=== PATIENT | female | born 1970 | race Caucasian/White ===

== ENCOUNTER 2019-01-21 09:17 | Outpatient (REF) | payer OTHER, SELFPAY ==
[2019-01-21 22:16] LABS: Abs Immature Grans 0.01 k/cumm (0.0-0.09); Absolute Basophil Count 0.02 k/cumm (0.0-0.2); Absolute Eosinophil Count 0.08 k/cumm (0.0-0.7); Absolute Monocyte Count 0.54 k/cumm (0.11-0.7); Absolute Neutrophil Count 3.05 k/cumm (1.2-6.7); Basophils % 0.4; Eosinophils % 1.5; HCT 41.5 % (36.0-46.0); HGB 13.8 g/dL (12.0-15.5); Immature Grans % 0.2; Lymphocytes % 28.8; Mean Corp. HGB Concentration 33.3 g/dL (32.0-36.0); Mean Corpuscular Hemoglobin 32.5 pg (27.0-33.0); Mean Corpuscular Volume 97.9 fL (80-95); Mean Platelet Volume 9.9 fL (8.0-11.0); Monocytes % 10.4; Neutrophils % 58.7; Platelet Count 352 x1000/uL (130-400); RBC 4.24 m/cumm (4.00-5.20); RBC Distribution Width 13.7 % (11.7-14.6)
[2019-01-21 22:31] LABS: ALT 21 U/L (12-78); AST 15 U/L (15-37); Alkaline Phosphatase 53 U/L (46-116); Anion Gap 8.5 mmol/L (3-11); BUN 15 mg/dL (7-18); Bilirubin, Total 0.4 mg/dL (0.2-1.0); CO2 27.5 mmol/L (21.0-32.0); CREATININE 0.83 mg/dL (0.55-1.02); Calcium 9.2 mg/dL (8.5-10.1); Chloride 101 mmol/L (98-107); Glucose 88 mg/dL (70-100); Potassium 4.2 mmol/L (3.5-5.1); Sodium 137 mmol/L (136-145); TSH 0.68 uIU/mL (0.358-3.74); Total Protein 7.6 g/dL (6.4-8.2)
== END 2019-01-21 09:37 ==
LOC: NCHCN 09:17
PROVIDERS: PCP Nurse Practitioner Family; Visit Provider Registered Nurse
DX: E03.9 Hypothyroidism, unspecified (principal); K50.90 Crohn's disease, unspecified, without complications
CPT/HCPCS: 80053; 84443; 85025

== ENCOUNTER 2019-07-24 12:14 | Outpatient (REF) | payer OTHER, SELFPAY ==
[2019-07-24 21:13] LABS: Absolute Basophil Count 0.02 k/cumm (0.0-0.2); Absolute Eosinophil Count 0.04 k/cumm (0.0-0.7); Absolute Lymphocyte Count 1.07 k/cumm (1.2-3.4); Absolute Monocyte Count 0.47 k/cumm (0.11-0.7); Basophils % 0.4; Eosinophils % 0.8; HCT 38.4 % (36.0-46.0); HGB 12.7 g/dL (12.0-15.5); Lymphocytes % 20.2; Mean Corp. HGB Concentration 33.1 g/dL (32.0-36.0); Mean Corpuscular Hemoglobin 30.9 pg (27.0-33.0); Mean Corpuscular Volume 93.4 fL (80-95); Mean Platelet Volume 9.4 fL (8.0-11.0); Monocytes % 8.9; Neutrophils % 69.7; Platelet Count 440 x1000/uL (130-400); RBC 4.11 m/cumm (4.00-5.20); RBC Distribution Width 14.6 % (11.7-14.6)
[2019-07-24 21:28] LABS: ALT 17 U/L (14-59); AST 15 U/L (15-37); Albumin 3.9 g/dL (3.4-5.0); Alkaline Phosphatase 53 U/L (46-116); Anion Gap 11.2 mmol/L (3-11); BUN 13 mg/dL (7-18); Bilirubin, Total 0.4 mg/dL (0.2-1.0); CO2 25.8 mmol/L (21.0-32.0); CREATININE 0.88 mg/dL (0.55-1.02); Calcium 9.1 mg/dL (8.5-10.1); Chloride 101 mmol/L (98-107); Glucose 99 mg/dL (74-106); Potassium 4.1 mmol/L (3.5-5.1); Sodium 138 mmol/L (136-145); Total Protein 7.5 g/dL (6.4-8.2)
== END 2019-07-24 12:34 ==
LOC: NCHCN 12:14
PROVIDERS: PCP Nurse Practitioner Family; Visit Provider Family Medicine
DX: M25.512 Pain in left shoulder (principal); K50.90 Crohn's disease, unspecified, without complications
CPT/HCPCS: 80053; 85025

== ENCOUNTER 2020-02-25 09:12 | Outpatient (REF) | payer OTHER, SELFPAY ==
[2020-02-25 19:38] LABS: Absolute Basophil Count 0.01 k/cumm (0.0-0.2); Absolute Eosinophil Count 0.07 k/cumm (0.0-0.7); Absolute Lymphocyte Count 0.96 k/cumm (1.2-3.4); Absolute Monocyte Count 0.31 k/cumm (0.11-0.7); Absolute Neutrophil Count 1.98 k/cumm (1.2-6.7); Basophils % 0.3; Eosinophils % 2.1; HCT 37.9 % (36.0-46.0); HGB 12.2 g/dL (12.0-15.5); Lymphocytes % 28.8; Mean Corp. HGB Concentration 32.2 g/dL (32.0-36.0); Mean Corpuscular Hemoglobin 28.8 pg (27.0-33.0); Mean Corpuscular Volume 89.4 fL (80-95); Mean Platelet Volume 9.8 fL (8.0-11.0); Monocytes % 9.3; Neutrophils % 59.5; Platelet Count 433 x1000/uL (130-400); RBC 4.24 m/cumm (4.00-5.20); RBC Distribution Width 14.9 % (11.7-14.6); White Blood Cell Count 3.33 k/cumm (4.4-10.8)
[2020-02-25 19:59] LABS: ALT 17 U/L (14-59); AST 17 U/L (15-37); Albumin 3.9 g/dL (3.4-5.0); Alkaline Phosphatase 46 U/L (46-116); Anion Gap 7.3 mmol/L (3-11); BUN 12 mg/dL (7-18); Bilirubin, Total 0.4 mg/dL (0.2-1.0); CO2 28.7 mmol/L (21.0-32.0); Calcium 9.2 mg/dL (8.5-10.1); Calculated LDL 197 mg/dL (<100); Chloride 100 mmol/L (98-107); Cholesterol 288 mg/dL (<200); Glucose 78 mg/dL (74-106); HDL Cholesterol 82 mg/dL (40-60); Potassium 4.3 mmol/L (3.5-5.1); Sodium 136 mmol/L (136-145); TSH 0.45 uIU/mL (0.36-3.74); Total Protein 7.2 g/dL (6.4-8.2); Triglyceride 49 mg/dL (<150)
== END 2020-02-25 09:32 ==
LOC: NCHCN 09:12
PROVIDERS: PCP Registered Nurse; Visit Provider Registered Nurse
DX: Z00.00 Encounter for general adult medical examination without abnormal findings (principal); E03.9 Hypothyroidism, unspecified; K50.90 Crohn's disease, unspecified, without complications; M25.512 Pain in left shoulder
CPT/HCPCS: 80053; 80061; 84443; 85025

== ENCOUNTER 2020-06-22 15:59 | Outpatient (REF) | payer OTHER, SELFPAY ==
[2020-06-26 22:05] LABS: Patient Race White; SARS-CoV-2 RNA Undetected (Undetected); SARS-CoV-2 Specimen Source Nasal
== END 2020-06-22 16:19 ==
LOC: NCHCN 15:59
PROVIDERS: PCP Registered Nurse; Visit Provider Nurse Practitioner Family
DX: Z11.59 Encounter for screening for other viral diseases (principal)
CPT/HCPCS: U0003

== ENCOUNTER 2020-10-25 13:35 | Outpatient (REF) | payer OTHER, SELFPAY ==
[2020-10-25 14:44] LABS: Abs Immature Grans 0.01 10^3/uL (0.0-0.06); Absolute Basophil Count 0.03 10^3/uL (0.0-0.2); Absolute Eosinophil Count 0.24 10^3/uL (0.0-0.7); Absolute Lymphocyte Count 1.25 10^3/uL (1.2-3.4); Absolute Monocyte Count 0.33 10^3/uL (0.1-0.8); Absolute Neutrophil Count 2.13 10^3/uL (1.2-6.7); Basophils % 0.8; HCT 35.4 % (36.0-46.0); HGB 11.5 g/dL (11.2-15.7); Immature Grans % 0.3; Lymphocytes % 31.3; MCH 30.4 pg (27.0-33.0); MCHC 32.5 % (32.0-36.0); MCV 93.7 fL (80-95); MPV 9.4 fL (8.0-11.0); Monocytes % 8.3; Neutrophils % 53.3; Nucleated RBC 0 %; Platelet Count 359 10^3/uL (130-400); RBC 3.78 10^6/uL (3.93-5.22); RDW-SD 52.6 fL; WBC 3.99 10^3/uL (4.4-10.8)
[2020-10-25 15:16] LABS: ALT 21 U/L (14-59); AST 14 U/L (15-37); Albumin 3.7 g/dL (3.4-5.0); Alkaline Phosphatase 47 U/L (46-116); Bilirubin, Direct 0.1 mg/dL (0.0-0.2); Bilirubin, Total 0.5 mg/dL (0.2-1.0); Total Protein 7.1 g/dL (6.4-8.2)
[2020-10-25 15:54] LABS: Calculated LDL 197 mg/dL (<100); Cholesterol 292 mg/dL (<200); HDL Cholesterol 84 mg/dL (40-60); Triglyceride 55 mg/dL (<150)
== END 2020-10-25 13:36 | disposition home or self-care (01) ==
LOC: NCHCN 13:35
PROVIDERS: PCP Registered Nurse; Visit Provider Registered Nurse
DX: Z00.00 Encounter for general adult medical examination without abnormal findings (principal); K50.90 Crohn's disease, unspecified, without complications; Z79.899 Other long term (current) drug therapy
CPT/HCPCS: 80061; 80076; 85025

== ENCOUNTER 2021-03-24 08:41 | Outpatient (REF) | payer OTHER, SELFPAY ==
--- NOTE | 2021-03-24 08:30 | PAPFT_PTH ---
PATIENT: Chelsea Vasquez LOC: [facility]#:[id number] AGE/SX: 51/F ROOM: RE03/24/[address]: Leeanna Nicolas : 1970 BED: DIS: 03/24/2021 SPEC #: [id number] RECD: 03/24/21 17:31 STATUS: ALPHONSO REQ #: [id number] DONALD: 03/24/21 08:[address]: Leeanna Nicolas DEPT: [facility] Cytology RECD BY: Regi Gaytan Tissues: 1 - CX/ENDOCX FOR PAP SMEARS Procedures: PAP THIN PREP/[facility] Screening HPV DNA PROBE Comments: [id number]
[2021-03-24 14:26] LABS: HCT 39.5 % (36.0-46.0); HGB 12.7 g/dL (11.2-15.7); MCH 28.8 pg (27.0-33.0); MCHC 32.2 % (32.0-36.0); MCV 89.6 fL (80-95); MPV 9.8 fL (8.0-11.0); Platelet Count 323 10^3/uL (130-400); RBC 4.41 10^6/uL (3.93-5.22); RDW 17.3 % (11.7-14.6); RDW-SD 57.1 fL; WBC 3.47 10^3/uL (4.4-10.8)
[2021-03-24 14:58] LABS: ALT 22 U/L (14-59); AST 20 U/L (15-37); Albumin 4.1 g/dL (3.4-5.0); Alkaline Phosphatase 55 U/L (46-116); Anion Gap 7.6 mmol/L (3-11); BUN 12 mg/dL (7-18); Bilirubin, Total 0.6 mg/dL (0.2-1.0); CO2 28.4 mmol/L (21.0-32.0); CREATININE 0.8 mg/dL (0.55-1.02); Calcium 9.2 mg/dL (8.5-10.1); Chloride 102 mmol/L (98-107); Glucose 71 mg/dL (74-106); Sodium 138 mmol/L (136-145); TSH 0.21 uIU/mL (0.36-3.74); Total Protein 7.7 g/dL (6.4-8.2)
== END 2021-03-24 08:42 | disposition home or self-care (01) ==
LOC: NCHCN 08:41
PROVIDERS: PCP Registered Nurse; Visit Provider Registered Nurse
DX: Z00.00 Encounter for general adult medical examination without abnormal findings (principal); E78.5 Hyperlipidemia, unspecified; E03.9 Hypothyroidism, unspecified; K50.90 Crohn's disease, unspecified, without complications; Z12.4 Encounter for screening for malignant neoplasm of cervix; Z11.51 Encounter for screening for human papillomavirus (HPV)
CPT/HCPCS: 80053; 85027; 88142; 84443; 87624

== ENCOUNTER 2021-07-21 07:27 | Outpatient (REF) | payer OTHER, SELFPAY ==
[2021-07-23 18:26] LABS: COVID-19 RT-PCR UVMMC Result Negative (Negative)
== END 2021-07-21 07:28 | disposition home or self-care (01) ==
LOC: NCHCN 07:27
PROVIDERS: PCP Registered Nurse; Visit Provider Registered Nurse
DX: Z20.822 Contact with and (suspected) exposure to COVID-19 (principal); J06.9 Acute upper respiratory infection, unspecified
CPT/HCPCS: U0003

== ENCOUNTER 2021-08-11 19:11 | Outpatient (REF) | payer OTHER, SELFPAY ==
[2021-08-12 21:07] LABS: COVID-19 RT-PCR UVMMC Result Negative (Negative)
== END 2021-08-11 19:12 | disposition home or self-care (01) ==
LOC: NCHCN 19:11
PROVIDERS: PCP Registered Nurse; Visit Provider Registered Nurse
DX: Z20.822 Contact with and (suspected) exposure to COVID-19 (principal)
CPT/HCPCS: U0003

== ENCOUNTER 2021-09-06 14:33 | Outpatient (REF) | payer OTHER, SELFPAY ==
[2021-09-06 15:52] LABS: Abs Immature Grans 0.01 10^3/uL (0.0-0.06); Absolute Basophil Count 0.03 10^3/uL (0.0-0.2); Absolute Lymphocyte Count 1.35 10^3/uL (1.2-3.4); Absolute Monocyte Count 0.42 10^3/uL (0.1-0.8); Absolute Neutrophil Count 1.52 10^3/uL (1.2-6.7); Basophils % 0.8; Eosinophils % 5.7; HCT 39.5 % (36.0-46.0); Immature Grans % 0.3; Lymphocytes % 38.2; MCH 30.7 pg (27.0-33.0); MCHC 32.9 % (32.0-36.0); MCV 93.2 fL (80-95); MPV 9.8 fL (8.0-11.0); Monocytes % 11.9; Neutrophils % 43.1; Nucleated RBC 0 %; Platelet Count 255 10^3/uL (130-400); RBC 4.24 10^6/uL (3.93-5.22); RDW 14.5 % (11.7-14.6); RDW-SD 49.6 fL; WBC 3.53 10^3/uL (4.4-10.8)
[2021-09-06 16:27] LABS: ALT 18 U/L (14-59); AST 18 U/L (15-37); Albumin 3.9 g/dL (3.4-5.0); Alkaline Phosphatase 55 U/L (46-116); Bilirubin, Total 0.5 mg/dL (0.2-1.0); Calculated LDL 168 mg/dL (<100); Cholesterol 263 mg/dL (<200); HDL Cholesterol 86 mg/dL (40-60); TSH 1.51 uIU/mL (0.36-3.74); Total Protein 7.3 g/dL (6.4-8.2); Triglyceride 48 mg/dL (<150)
[2021-09-06 16:43] LABS: Bilirubin, Direct 0.1 mg/dL (0.0-0.2)
== END 2021-09-06 14:34 | disposition home or self-care (01) ==
LOC: NCHCN 14:33
PROVIDERS: PCP Registered Nurse; Visit Provider Registered Nurse
DX: E78.5 Hyperlipidemia, unspecified (principal); E03.9 Hypothyroidism, unspecified; K50.90 Crohn's disease, unspecified, without complications; Z79.899 Other long term (current) drug therapy
CPT/HCPCS: 80061; 80076; 84443; 85025

== ENCOUNTER 2022-03-08 15:47 | Outpatient (REF) | payer OTHER, SELFPAY ==
[2022-03-08 18:15] LABS: Calculated LDL 102 mg/dL (<100); Cholesterol 193 mg/dL (<200); HDL Cholesterol 82 mg/dL (40-60); Triglyceride 45 mg/dL (<150)
== END 2022-03-08 15:48 | disposition home or self-care (01) ==
LOC: NCHCN 15:47
PROVIDERS: PCP Registered Nurse; Visit Provider Registered Nurse
DX: E78.5 Hyperlipidemia, unspecified (principal); Z79.899 Other long term (current) drug therapy
CPT/HCPCS: 80061

== ENCOUNTER 2022-05-25 16:58 | Outpatient (REF) | payer OTHER, SELFPAY ==
[2022-05-25 14:28] LABS: Absolute Basophil Count 0.03 10^3/uL (0.0-0.2); Absolute Lymphocyte Count 1.58 10^3/uL (1.2-3.4); Absolute Monocyte Count 0.35 10^3/uL (0.1-0.8); Absolute Neutrophil Count 2.02 10^3/uL (1.2-6.7); Basophils % 0.7; Eosinophils % 2.5; HGB 13.7 g/dL (11.2-15.7); Lymphocytes % 38.7; MCH 33.5 pg (27.0-33.0); MCHC 34.3 % (32.0-36.0); MCV 98 fL (80-95); MPV 9.6 fL (8.0-11.0); Monocytes % 8.6; Neutrophils % 49.5; Platelet Count 253 10^3/uL (130-400); RBC 4.09 10^6/uL (3.93-5.22); RDW 13.1 % (11.7-14.6); RDW-SD 46.5 fL; WBC 4.08 10^3/uL (4.4-10.8)
[2022-05-25 14:54] LABS: ALT 21 U/L (14-59); AST 25 U/L (15-37); Albumin 4.2 g/dL (3.4-5.0); Alkaline Phosphatase 66 U/L (46-116); Anion Gap 6.3 mmol/L (3-11); BUN 15 mg/dL (7-18); Bilirubin, Total 0.5 mg/dL (0.2-1.0); CO2 29.7 mmol/L (21.0-32.0); CREATININE 0.9 mg/dL (0.55-1.02); Calcium 9.3 mg/dL (8.5-10.1); Chloride 101 mmol/L (98-107); Estimated GFR 75.97 (mL/min/1.73m2); Glucose 93 mg/dL (74-106); Sodium 137 mmol/L (136-145); Total Protein 7.8 g/dL (6.4-8.2)
[2022-05-25 14:55] LABS: C-Reactive Protein < 0.05 mg/dL (0.0-0.3)
== END 2022-05-25 16:59 | disposition home or self-care (01) ==
LOC: NCHCN 16:58
PROVIDERS: PCP Registered Nurse; Visit Provider Registered Nurse
DX: K50.90 Crohn's disease, unspecified, without complications (principal); Z79.899 Other long term (current) drug therapy
CPT/HCPCS: 80053; 85025; 86140

== ENCOUNTER 2022-07-25 13:42 | Outpatient (REF) | payer OTHER, SELFPAY ==
--- NOTE | 2022-07-25 09:15 | SKI_PTH ---
PATIENT: Chelsea Vasquez LOC: [facility]#:[id number] AGE/SX: 52/F ROOM: RE07/25/[address]: Eleanor Rosario : 1970 BED: DIS: 07/25/2022 SPEC #: [id number] RECD: 07/25/22 18:13 STATUS: ALPHONSO REQ #: [id number] DONALD: 07/25/22 09:[address]: Eleanor Mendez DEPT: Surgical Specimen RECD BY: Regi Gaytan ENTERED: 07/25/22 18:13 SP TYPE: ALAN HERNANDEZ DR: Leeanna Nicolas Tissues: 1 - SKIN BIOPSY(SHAVE/PUNCH) Procedures: SKIN LEVEL 4 Comments: [id number]
== END 2022-07-25 13:43 | disposition home or self-care (01) ==
LOC: NCHCN 13:42
PROVIDERS: PCP Registered Nurse; Visit Provider Nurse Practitioner Family
DX: B07.9 Viral wart, unspecified (principal)
CPT/HCPCS: 88305

== ENCOUNTER 2022-12-15 09:00 | Outpatient (REF) | payer BC, SELFPAY ==
[2022-12-15 14:13] LABS: Absolute Basophil Count 0.04 10^3/uL (0.0-0.2); Absolute Eosinophil Count 0.13 10^3/uL (0.0-0.7); Absolute Lymphocyte Count 1.48 10^3/uL (1.2-3.4); Absolute Monocyte Count 0.36 10^3/uL (0.1-0.8); Absolute Neutrophil Count 2.24 10^3/uL (1.2-6.7); Basophils % 0.9; Eosinophils % 3.1; HCT 42.6 % (36.0-46.0); HGB 14.3 g/dL (11.2-15.7); Lymphocytes % 34.8; MCH 33.3 pg (27.0-33.0); MCHC 33.6 % (32.0-36.0); MCV 99 fL (80-95); MPV 9.6 fL (8.0-11.0); Monocytes % 8.5; Neutrophils % 52.7; Platelet Count 275 10^3/uL (130-400); RBC 4.29 10^6/uL (3.93-5.22); RDW 13.7 % (11.7-14.6); RDW-SD 49.7 fL; WBC 4.25 10^3/uL (4.4-10.8)
[2022-12-15 14:32] LABS: ALT 20 U/L (14-59); AST 23 U/L (15-37); Albumin 3.8 g/dL (3.4-5.0); Alkaline Phosphatase 75 U/L (46-116); Anion Gap 6.1 mmol/L (3-11); BUN 14 mg/dL (7-18); Bilirubin, Total 0.5 mg/dL (0.2-1.0); CO2 30.9 mmol/L (21.0-32.0); Calcium 9.1 mg/dL (8.5-10.1); Calculated LDL 116 mg/dL (<100); Chloride 101 mmol/L (98-107); Cholesterol 211 mg/dL (<200); Estimated GFR 66.95 (mL/min/1.73m2); Glucose 84 mg/dL (74-106); HDL Cholesterol 87 mg/dL (40-60); Potassium 3.9 mmol/L (3.5-5.1); Sodium 138 mmol/L (136-145); TSH 1.98 uIU/mL (0.36-3.74); Total Protein 7.7 g/dL (6.4-8.2); Triglyceride 40 mg/dL (<150)
== END 2022-12-15 09:01 | disposition home or self-care (01) ==
LOC: NCHCN 09:00
PROVIDERS: PCP Registered Nurse; Visit Provider Registered Nurse
DX: Z00.00 Encounter for general adult medical examination without abnormal findings (principal); E03.9 Hypothyroidism, unspecified; E78.5 Hyperlipidemia, unspecified; K50.90 Crohn's disease, unspecified, without complications
CPT/HCPCS: 80053; 80061; 84443; 85025

== ENCOUNTER 2024-01-24 00:40 | Outpatient (RCR) | payer BC, SELFPAY ==
[2024-01-24] MEDS: Normal Saline Flush 10 ML SYR IVP (13:05)
== END 2024-02-10 23:59 | disposition home or self-care (01) ==
LOC: INF 00:40
PROVIDERS: PCP Registered Nurse; Visit Provider Nurse Practitioner Acute Care
DX: K50.119 Crohn's disease of large intestine with unspecified complications (principal)
CPT/HCPCS: 96365

== ENCOUNTER 2024-02-06 13:04 | Outpatient (REF) | payer BC, SELFPAY ==
[2024-02-06 15:33] LABS: Abs Immature Grans 0.01 10^3/uL (0.0-0.06); Absolute Basophil Count 0.03 10^3/uL (0.0-0.2); Absolute Eosinophil Count 0.12 10^3/uL (0.0-0.7); Absolute Lymphocyte Count 1.61 10^3/uL (1.2-3.4); Absolute Monocyte Count 0.44 10^3/uL (0.1-0.8); Absolute Neutrophil Count 2.01 10^3/uL (1.2-6.7); Basophils % 0.7 %; Eosinophils % 2.8 %; HCT 46.7 % (36.0-46.0); HGB 15.6 g/dL (11.2-15.7); Immature Grans % 0.2 %; Lymphocytes % 38.2 %; MCH 33.2 pg (27.0-33.0); MCHC 33.4 % (32.0-36.0); MCV 99 fL (80-95); MPV 9.8 fL (8.0-11.0); Monocytes % 10.4 %; Neutrophils % 47.7 %; Platelet Count 276 10^3/uL (130-400); RDW 13.2 % (11.7-14.6); RDW-SD 48.5 fL; WBC 4.22 10^3/uL (4.4-10.8)
[2024-02-06 15:43] LABS: ALT 21 U/L (14-59); AST 24 U/L (15-37); Alkaline Phosphatase 86 U/L (46-116); Bilirubin, Direct 0.1 mg/dL (0.0-0.2); Bilirubin, Total 0.37 mg/dL (0.2-1.0); C-Reactive Protein < 0.50 mg/dL (<or=0.5); Total Protein 7.9 g/dL (6.4-8.2)
== END 2024-02-06 13:05 | disposition home or self-care (01) ==
LOC: LBN 13:04
PROVIDERS: PCP Registered Nurse; Visit Provider Internal Medicine Gastroenterology
DX: K50.119 Crohn's disease of large intestine with unspecified complications (principal); Z79.899 Other long term (current) drug therapy
CPT/HCPCS: 80076; 85025; 86140

== ENCOUNTER 2024-02-21 00:50 | Outpatient (RCR) | payer BC, SELFPAY ==
[2024-02-21 12:18] LABS: MCH 32.9 pg (27.0-33.0); MCHC 34.1 % (32.0-36.0); MCV 97 fL (80-95); MPV 9.3 fL (8.0-11.0); Platelet Count 227 10^3/uL (130-400); RBC 4.56 10^6/uL (3.93-5.22); RDW 12.4 % (11.7-14.6); RDW-SD 43.8 fL; WBC 5.83 10^3/uL (4.4-10.8)
[2024-02-21] MEDS: Normal Saline Flush 10 ML SYR IVP (12:18)
[2024-02-21 12:31] LABS: ALT 23 U/L (14-59); AST 24 U/L (15-37); Albumin 3.8 g/dL (3.4-5.0); Alkaline Phosphatase 80 U/L (46-116); Bilirubin, Direct 0.1 mg/dL (0.0-0.2); C-Reactive Protein < 0.50 mg/dL (<or=0.5); Total Protein 7.5 g/dL (6.4-8.2)
== END 2024-03-12 23:59 | disposition home or self-care (01) ==
LOC: INF 00:50
PROVIDERS: Internal Medicine Gastroenterology; PCP Registered Nurse; Visit Provider Nurse Practitioner Acute Care
DX: K50.119 Crohn's disease of large intestine with unspecified complications (principal); Z79.899 Other long term (current) drug therapy
CPT/HCPCS: 80076; 85027; 96365; 86140; J2327

== ENCOUNTER 2024-03-20 01:38 | Outpatient (RCR) | payer BC, SELFPAY ==
[2024-03-20] MEDS: Normal Saline Flush 10 ML SYR IVP (12:59)
[2024-03-20 13:03] LABS: HCT 44.3 % (36.0-46.0); HGB 15.1 g/dL (11.2-15.7); MCHC 34.1 % (32.0-36.0); MCV 97 fL (80-95); MPV 9.2 fL (8.0-11.0); Platelet Count 236 10^3/uL (130-400); RBC 4.58 10^6/uL (3.93-5.22); RDW-SD 42.9 fL
[2024-03-20 13:19] LABS: ALT 29 U/L (14-59); AST 22 U/L (15-37); Alkaline Phosphatase 87 U/L (46-116); Bilirubin, Direct 0.1 mg/dL (0.0-0.2); Bilirubin, Total 0.34 mg/dL (0.2-1.0); Total Protein 7.7 g/dL (6.4-8.2)
[2024-03-20 13:20] LABS: C-Reactive Protein < 0.50 mg/dL (<or=0.5)
== END 2024-04-12 23:59 | disposition home or self-care (01) ==
LOC: INF 01:38
PROVIDERS: Internal Medicine Gastroenterology; PCP Registered Nurse; Visit Provider Nurse Practitioner Acute Care
DX: K50.119 Crohn's disease of large intestine with unspecified complications (principal); Z79.899 Other long term (current) drug therapy
CPT/HCPCS: 36415; 80076; 85027; 96365; 86140; J2327

== ENCOUNTER 2024-04-22 16:40 | Outpatient (REF) | payer BC, SELFPAY ==
[2024-04-22 17:24] LABS: Abs Immature Grans 0.01 10^3/uL (0.0-0.06); Absolute Basophil Count 0.03 10^3/uL (0.0-0.2); Absolute Eosinophil Count 0.16 10^3/uL (0.0-0.7); Absolute Lymphocyte Count 1.82 10^3/uL (1.2-3.4); Absolute Monocyte Count 0.46 10^3/uL (0.1-0.8); Absolute Neutrophil Count 2.26 10^3/uL (1.2-6.7); Basophils % 0.6 %; Eosinophils % 3.4 %; HCT 43.7 % (36.0-46.0); HGB 14.9 g/dL (11.2-15.7); Immature Grans % 0.2 %; Lymphocytes % 38.4 %; MCH 32.4 pg (27.0-33.0); MCHC 34.1 % (32.0-36.0); MCV 95 fL (80-95); MPV 9.6 fL (8.0-11.0); Monocytes % 9.7 %; Neutrophils % 47.7 %; Platelet Count 253 10^3/uL (130-400); RDW 11.9 % (11.7-14.6); RDW-SD 42.1 fL; WBC 4.74 10^3/uL (4.4-10.8)
[2024-04-22 17:53] LABS: ALT 31 U/L (14-59); AST 34 U/L (15-37); Alkaline Phosphatase 71 U/L (46-116); Bilirubin, Direct 0.1 mg/dL (0.0-0.2); Bilirubin, Total 0.51 mg/dL (0.2-1.0); TSH 1.05 uIU/Ml (0.36-3.74); Total Protein 7.6 g/dL (6.4-8.2)
[2024-04-22 17:54] LABS: C-Reactive Protein < 0.50 mg/dL (<or=0.5)
== END 2024-04-22 16:41 | disposition home or self-care (01) ==
LOC: NCHCN 16:40
PROVIDERS: PCP Registered Nurse; Visit Provider Family Medicine
DX: E03.9 Hypothyroidism, unspecified (principal); K50.119 Crohn's disease of large intestine with unspecified complications; Z79.899 Other long term (current) drug therapy
CPT/HCPCS: 80076; 84443; 85025; 86140

== ENCOUNTER 2025-01-06 20:55 | Outpatient (REF) | payer BC, SELFPAY ==
[2025-01-06 22:43] LABS: Absolute Basophil Count 0.03 10^3/uL (0.0-0.2); Absolute Eosinophil Count 0.16 10^3/uL (0.0-0.7); Absolute Lymphocyte Count 1.58 10^3/uL (1.2-3.4); Absolute Monocyte Count 0.44 10^3/uL (0.1-0.8); Absolute Neutrophil Count 2.78 10^3/uL (1.2-6.7); Basophils % 0.6 %; Eosinophils % 3.2 %; HCT 40.6 % (36.0-46.0); HGB 13.3 g/dL (11.2-15.7); Lymphocytes % 31.7 %; MCH 31.1 pg (27.0-33.0); MCHC 32.8 % (32.0-36.0); MCV 95 fL (80-95); MPV 9.8 fL (8.0-11.0); Monocytes % 8.8 %; Neutrophils % 55.7 %; Platelet Count 272 10^3/uL (130-400); RBC 4.28 10^6/uL (3.93-5.22); RDW 12.8 % (11.7-14.6); RDW-SD 44.7 fL; WBC 4.99 10^3/uL (4.4-10.8)
[2025-01-06 22:57] LABS: ALT 26 U/L (14-59); AST 29 U/L (15-37); Albumin 3.8 g/dL (3.4-5.0); Alkaline Phosphatase 68 U/L (46-116); Bilirubin, Direct 0.1 mg/dL (0.0-0.2); Bilirubin, Total 0.4 mg/dL (0.2-1.0); C-Reactive Protein < 0.50 mg/dL (<or=0.5)
== END 2025-01-06 20:56 | disposition home or self-care (01) ==
LOC: LBN 20:55
PROVIDERS: PCP Registered Nurse; Visit Provider Internal Medicine Gastroenterology
DX: K50.019 Crohn's disease of small intestine with unspecified complications (principal)
CPT/HCPCS: 80076; 85025; 86140

== ENCOUNTER 2025-03-23 12:53 | Outpatient (REF) | payer BC, SELFPAY ==
--- NOTE | 2025-03-23 15:45 | SKI_PTH ---
PATIENT: Chelsea Vasquez LOC: [facility]#:[id number] AGE/SX: 55/F ROOM: RE03/23/[address]: Renetta Lopez : 1970 BED: DIS: 03/23/2025 SPEC #: [id number] RECD: 03/24/25 12:59 STATUS: ALPHONSO REQ #: [id number] DONALD: 03/23/25 15:[address]: Renetta Lopez DEPT: Surgical Specimen RECD BY: Regi Gaytan ENTERED: 03/24/25 13:00 SP TYPE: ALAN HERNANDEZ DR: Leeanna Nicolas Tissues: 1 - SKIN BIOPSY(SHAVE/PUNCH) Procedures: SKIN LEVEL 4 Comments: [id number]
== END 2025-03-23 12:54 | disposition home or self-care (01) ==
LOC: NCHCN 12:53
PROVIDERS: PCP Registered Nurse; Visit Provider Family Medicine
DX: L57.0 Actinic keratosis (principal)
CPT/HCPCS: 88305